=== PATIENT | female | born 1945 | race Caucasian/White ===

== ENCOUNTER 2024-02-29 12:08 | Inpatient (IN) | payer OTHER ==
[2024-02-29 12:52] VITALS: BMI 37.5
[2024-02-29] MEDS ORDERED: ACETAMINOPHEN INJECTION 100 ML IVPB ONE (13:06)
[2024-02-29] MEDS: ACETAMINOPHEN 1000 MG/100 ML BAG IVPB ONE (13:23)
[2024-02-29 13:28] LABS: BASO % 0.7 % (0-2.0); EOS % 1.8 % (0-4.5); HEMATOCRIT 34.2 % (32.4-45.2); HEMOGLOBIN 11.5 GM/dL (10.7-15.3); LYMPH % 28.5 % (8-40); MCH 28.6 pg (25.7-33.7); MCHC 33.6 g/dl (32.0-36.0); MEAN CELL VOLUME 85.2 fl (80-96); MEAN PLT VOLUME 6.3 fl (7.5-11.1); MONO % 11.1 % (3.8-10.2); NEUT % 57.9 % (42.8-82.8); PLATELET COUNT 217 10^3/uL (134-434); RBC 4.01 M/mm3 (3.60-5.2); WHITE BLOOD COUNT 8.1 K/mm3 (4.0-10.0)
[2024-02-29 13:35] LABS: INR 1.12 (0.83-1.09)
[2024-02-29 13:37] LABS: ACTIVATED PTT 29.9 SECONDS (25.2-36.5)
[2024-02-29 13:53] LABS: POTASSIUM 4.2 mmol/L (3.5-5.1)
[2024-02-29 13:55] LABS: ALBUMIN 3.1 g/dl (3.4-5.0); BLOOD UREA NITROGEN 21.4 mg/dL (7-18); CALCIUM 8.9 mg/dL (8.5-10.1); MAGNESIUM 1.5 mg/dL (1.8-2.4)
[2024-02-29 13:58] LABS: PHOSPHOROUS 2.8 mg/dL (2.5-4.9)
[2024-02-29 13:59] LABS: CREATININE 1.1 mg/dL (0.55-1.3)
[2024-02-29 14:00] LABS: BILIRUBIN,TOTAL 0.4 mg/dL (0.2-1); TOT PROT 6.4 g/dl (6.4-8.2)
[2024-02-29] MEDS ORDERED: MAGNESIUM SULFATE IN WATER 2 GM/50 ML IVPB IVPB ONE (20:07)
[2024-02-29] MEDS ORDERED: MAGNESIUM 1GM/D5W - 1 GM/100 ML IVPB IVPB ONE (20:08)
[2024-02-29] MEDS: MAGNESIUM 1GM/D5W - 1 GM/100 ML IVPB IVPB ONE (20:14)
[2024-02-29] MEDS ORDERED: DIVALPROEX SODIUM 500 MG TABLET E.C. ONE (22:38)
[2024-02-29] MEDS ORDERED: DOCUSATE SODIUM 100 MG CAPSULE (FP) PO ONE (22:39)
[2024-02-29] MEDS ORDERED: SULFAMETHOXAZOLE/TRIMETHOPRIM 800MG/160MG D.S. TABLET ONE (22:39)
[2024-02-29] MEDS: RIVAROXABAN 10 MG TABLET PO SCH (23:54)
[2024-02-29] MEDS: SULFAMETHOXAZOLE/TRIMETHOPRIM 800MG/160MG D.S. TABLET PO SCH (23:54)
[2024-02-29] MEDS: DOCUSATE SODIUM 100 MG CAPSULE (FP) PO SCH (23:54)
[2024-02-29] MEDS: ATORVASTATIN CA 20 MG TABLET (FP) PO SCH (23:55)
[2024-02-29] MEDS: INSULIN ASPART SLIDING SCALE (NOVOLOG) 1 VIAL SQ SCH (23:55)
[2024-02-29] MEDS: DIVALPROEX NA *ER* EXTEND REL 500 MG TABLET.SA (FP) PO SCH (23:55)
[2024-02-29] MEDS ORDERED: INSULIN (NOVOLOG) ASPART 100 UNITS/ML 10ML VIAL ONE (23:57)
[2024-03-01] MEDS: ENOXAPARIN NA (PORCINE) 40 MG/0.4 ML DISP.SYRIN SQ SCH (01:18)
[2024-03-01] MEDS ORDERED: DOCUSATE SODIUM 100 MG CAPSULE (FP) PO ONE (06:08)
[2024-03-01 06:29] LABS: HEMOGLOBIN 11.1 GM/dL (10.7-15.3); MCH 28.6 pg (25.7-33.7); MCHC 33.5 g/dl (32.0-36.0); MEAN CELL VOLUME 85.4 fl (80-96); MEAN PLT VOLUME 6.3 fl (7.5-11.1); PLATELET COUNT 224 10^3/uL (134-434); RBC 3.87 M/mm3 (3.60-5.2); RDW 15.2 % (11.6-15.6); WHITE BLOOD COUNT 8.1 K/mm3 (4.0-10.0)
[2024-03-01 06:37] LABS: BLOOD UREA NITROGEN 21.9 mg/dL (7-18)
[2024-03-01 06:40] LABS: CREATININE 0.9 mg/dL (0.55-1.3)
[2024-03-01] MEDS ORDERED: LEVOTHYROXINE NA 100 MCG TABLET (FP) ONE (07:39)
[2024-03-01] MEDS: LEVOTHYROXINE NA 100 MCG TABLET (FP) PO SCH (07:47)
[2024-03-01] MEDS ORDERED: DOCUSATE SODIUM 100 MG CAPSULE (FP) PO SCH (10:00)
[2024-03-01] MEDS: VENLAFAXINE HCL 150 MG E.R. CAPSULE PO SCH (10:49)
[2024-03-01] MEDS: FUROSEMIDE 20 MG TABLET (FP) PO SCH (10:49)
[2024-03-01] MEDS: ASPIRIN COATED 81 MG TABLET.EC PO SCH (10:49)
[2024-03-01] MEDS ORDERED: INSULIN (NOVOLOG) ASPART 100 UNITS/ML 10ML VIAL ONE (11:14)
[2024-03-01 12:09] VITALS: RESP 20
[2024-03-01 14:06] VITALS: BP 115/66; PULSE 67; TEMP 98.3
== END 2024-03-01 14:59 | disposition home or self-care (01) | DRG 313 ==
LOC: JER 12:08 → JERBED 15:45 → OBSVTOIN 20:53
PROVIDERS: ADMIT Internal Medicine; ATTEND Internal Medicine
DX: R07.89 Other chest pain (principal); N39.0 Urinary tract infection, site not specified; E03.9 Hypothyroidism, unspecified; E11.9 Type 2 diabetes mellitus without complications; E78.5 Hyperlipidemia, unspecified; I48.91 Unspecified atrial fibrillation; E83.42 Hypomagnesemia; J45.909 Unspecified asthma, uncomplicated; R33.9 Retention of urine, unspecified
CPT/HCPCS: 0241U-QW; 36415; 71045-TC-FY; 71275-TC; 80048; 80053; 82465; 82962; 83036; 83735; 84100; 84484; 85025; 85027; 85610; 85730; 93005; 93010; 93306-TC; 99285-25; G0378; J0131; Q9967